=== PATIENT | female | born 1970 | race African-American/Black ===

== ENCOUNTER 2021-12-31 08:22 | Emergency (ER) | payer OTHER, MEDICARE ==
[~2021-12-31] VITALS: Ht 152.4 cm; Wt 57.1 kg
[~2021-12-31 08:22] MED LIST: ANTIVERT25 MG PO; CYMBALTA30 MG PO; LIALDA1.2 GM PO; ROBAXIN 750 MG750 M1 PO
[2021-12-31] MEDS ORDERED: SERTRALINE HCL100 MG PO (08:34)
[2021-12-31] MEDS ORDERED: TRAMADOL 50 MG50 MG PO (08:35)
[2021-12-31] MEDS ORDERED: NORVASC5 MG PO (08:35)
[2021-12-31] MEDS ORDERED: BIRTH CONTROL (08:35)
[2021-12-31] MEDS ORDERED: CYCLOBENZAPRINE5 MG PO (08:35)
[2021-12-31] MEDS ORDERED: FLEXERIL PO (09:40)
[2021-12-31] MEDS ORDERED: PERCOCET PO (09:40)
[2021-12-31 09:45] VITALS: BP 175/95
== END 2021-12-31 09:45 | disposition home or self-care (01) ==
LOC: M.ERS 08:22
DX: S16.1XXA Strain of muscle, fascia and tendon at neck level, initial encounter (principal); M54.9 Dorsalgia, unspecified; R51.9 Headache, unspecified; M79.7 Fibromyalgia; Z98.51 Tubal ligation status; Z79.899 Other long term (current) drug therapy; Z88.6 Allergy status to analgesic agent; Z88.1 Allergy status to other antibiotic agents; Z88.2 Allergy status to sulfonamides; V69.88XA Occupant (driver) (passenger) of heavy transport vehicle injured in other specified transport accidents, initial encounter; Y93.I9 Activity, other involving external motion; Y92.488 Other paved roadways as the place of occurrence of the external cause; Y99.8 Other external cause status